=== PATIENT | female | born 1975 | race African-American/Black ===

== ENCOUNTER → 2024-09-20 | Emergency (ER) | payer OTHER ==
[~2024-09-20] MED LIST: CEFUROXIME500 MG PO; PHENAZOPYRIDIN200 MG PO; PREDNISONE20 MG PO
== END | disposition home or self-care (01) ==
LOC: FSED 04:40
DX: N39.0 Urinary tract infection, site not specified (principal); R31.9 Hematuria, unspecified; I10 Essential (primary) hypertension